=== PATIENT | female | born 1950 | race Caucasian/White ===

== ENCOUNTER 2016-06-08 08:17 | Emergency (ER) | payer MEDICAID, OTHER ==
[~2016-06-08] VITALS: Ht 165.1 cm; Wt 57.2 kg
[~2016-06-08 08:17] MED LIST: CLON0.5T PO; QUET25TA37 PO
[2016-06-08] MEDS ORDERED: SODIUM CHLORIDE 0.9% 2,000 ML IV ONE (08:45)
[2016-06-08 09:23] LABS: Basophils # (auto) 0 uL; Basophils % (auto) 0.4 % (0.0-2.0); Eosinophils # (auto) 0.1 uL; Eosinophils % (auto) 0.7 % (0.0-7.0); Hematocrit 49.1 % (36.0-46.0); Hemoglobin 16.6 g/dL (12.2-16.2); Lymphocytes # (auto) 1.5 uL; Lymphocytes % (auto) 13.6 % (10.0-50.0); Mean Corpuscular Hemoglobin 30.8 pg (28.0-32.0); Mean Corpuscular Hgb Conc. 33.7 g/dL (32.0-36.0); Mean Corpuscular Volume 91.4 fL (80.0-100.0); Mean Platelet Volume 7.7 fL (7.4-10.4); Monocytes # (auto) 0.8 uL; Monocytes % (auto) 7.2 % (0.0-12.0); Neutrophils # (auto) 8.7 uL; Neutrophils % (auto) 78.1 % (37.0-80.0); Platelet Count (auto) 395 10^3/uL (140-450); Red Cell Distribution Width 13.6 % (11.6-16.0); White Blood Cell 11.1 10^3/uL (4.4-10.8)
[2016-06-08 09:33] LABS: Albumin 3.9 g/dL (3.4-5.0); BUN/Creatinine Ratio 18.2; Bilirubin, Total 0.5 mg/dL (0.2-1.0); Calcium 10.5 mg/dL (8.5-10.1); Potassium 3.7 mmol/L (3.5-5.1); Total Protein 7.3 g/dL (6.4-8.2)
[2016-06-08] MEDS ORDERED: SODIUM CHLORIDE 0.9% 1,000 ML IV ONE (09:52)
[2016-06-08 10:08] LABS: REFLEX LACTIC ACID YES OR NO YES
[2016-06-08 11:30] LABS: Urine Bilirubin Negative (Negative); Urine Blood TRACE /uL (Negative); Urine Color Yellow (Yellow); Urine Glucose TRACE mg/dL (Normal); Urine Ketone Negative (Negative); Urine Mucus FEW (None Seen); Urine Nitrite Negative (Negative); Urine RBC 17 /hpf (0 - 4); Urine Squamous Epithelial Cell MANY /hpf (<5); Urine pH 5.5 (5.0-8.0)
[2016-06-08] MEDS ORDERED: cefTRIAXone 1GM/50ML D5W 50 ML IV ONE (12:00)
[2016-06-08 13:59] VITALS: BP 125/58
== END 2016-06-08 14:36 | disposition home or self-care (01) ==
LOC: ER 08:17 → EDBD 08:17 → ER 14:36
DX: E86.0 Dehydration (principal); N19 Unspecified kidney failure
CPT/HCPCS: 36415; 71010; 80053; 81001; 83605; 85025; 87040; 93005; 96361; 96365; 99285; J0696